=== PATIENT | female | born 1970 | race Caucasian/White ===

== ENCOUNTER 2017-11-24 11:23 | Day surgery (SDC) | payer OTHER ==
[2017-11-24] MEDS ORDERED: FENTAnyl 50 MCG/ML VIAL (14:27)
[2017-11-24] MEDS ORDERED: MIDAZOLAM 1 MG/ML 2 ML INJ ×3 (14:27→14:28)
== END 2017-11-24 16:15 | disposition home or self-care (01) ==
LOC: GIL 11:23
DX: K21.9 Gastro-esophageal reflux disease without esophagitis (principal); K44.9 Diaphragmatic hernia without obstruction or gangrene; K29.70 Gastritis, unspecified, without bleeding; K64.8 Other hemorrhoids
CPT/HCPCS: 43239; 84703; 87081